=== PATIENT | female | born 2000 | race Caucasian/White ===

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

== ENCOUNTER 2021-02-09 19:50 | Emergency (ER) | payer MEDICAID, SELFPAY ==
[2021-02-09 19:51] VITALS: BP 146/82; PULSE 106; RESP 18; TEMP 37.1; O2SAT 98; BMI 42.5
== END 2021-02-09 20:00 | disposition left against medical advice (07) ==
LOC: ED 20:33
DX: Z53.21 Procedure and treatment not carried out due to patient leaving prior to being seen by health care provider (principal)

== ENCOUNTER 2021-08-21 12:12 | Outpatient (CLI) | payer MEDICAID, SELFPAY ==
[2021-08-21 14:55] LABS: Thyroid Stim Hormone (TSH) 2.38 uIU/mL (0.358-3.74)
[2021-08-23 06:08] LABS: Chlamydia By Nucleic Acid AMP Negative (Negative)
[2021-08-23 16:14] LABS: Gonococcus By Nucleic Acid AMP Negative (Negative)
== END 2021-08-21 23:59 | disposition home or self-care (01) ==
LOC: WOBLAB 12:14
PROVIDERS: Visit Provider Obstetrics & Gynecology
DX: Z11.3 Encounter for screening for infections with a predominantly sexual mode of transmission (principal); Z13.29 Encounter for screening for other suspected endocrine disorder
CPT/HCPCS: 36415; 84443; 87491; 87591

== ENCOUNTER 2021-11-14 14:06 | Emergency (ER) | payer MEDICAID, SELFPAY ==
[2021-11-14 14:07] VITALS: BP 115/72; PULSE 110; RESP 18; TEMP 37.4; O2SAT 95; BMI 40.7
[2021-11-14 14:08] VITALS: BP 119/63; PULSE 76; RESP 18; TEMP 37.2
[2021-11-14] MEDS: oxyCODONE 5 MG Tablet PO (15:00)
[2021-11-14 15:08] VITALS: BP 114/64; PULSE 74; RESP 18; TEMP 37.4; O2SAT 99
--- NOTE | 2021-11-14 16:03 | EDS_ITS ---
HPI History of Present Illness Chief Complaint: Abscess Narrative Narrative: 21-year-old female presenting with an abscess in the gluteal region. She states is between her upper and lower gluteal region. Its been there for about a week. She states she was seen at another facility and they told her it was just deep bruising. She is not had systemic signs or symptoms. Patient denies any fever or chills. She denies any trauma to the area. No history of MRSA or abscess. PFSH PFSH Medical History no medical history Home Medications naproxen 500 mg PO BID 11/14/21 [History Last Taken Unknown] oxycodone-acetaminophen [Percocet] 1 tab PO Q6H PRN 3 Days #12 tab 11/14/21 [Rx Last Taken Unknown] prazosin 1 mg PO DAILY 11/14/21 [History Last Taken Unknown] sulfamethoxazole-trimethoprim [Bactrim DS] 1 tab PO BID #20 tab 11/14/21 [Rx Last Taken Unknown] vortioxetine [Trintellix] 10 mg PO QHS 11/14/21 [History Last Taken Unknown] Allergy/AdvReac Type Severity Reaction Status Date / Time No Known Allergies Allergy Verified 11/14/21 14:08 Surgical History no surgical history Social History Smoking Status: Current every day smoker tobacco type: cigarettes substance use type: does not use ROS ROS ED Constitutional Constitutional ED: Denies chills or fever(s) Eyes Eyes: Denies blurry vision or diplopia ENT ENT ED: Denies rhinorrhea or sore throat Cardiovascular Cardiovascular: Denies chest pain or palpitations Respiratory/Chest Respiratory/Chest: Denies cough or dyspnea Gastrointestinal Gastrointestinal: Denies abdominal pain, nausea or vomiting Genitourinary Genitourinary ED: Denies dysuria or hematuria Musculoskeletal Musculoskeletal: Denies arthralgias or myalgias Integumentary Reports abscess Neurologic Neurologic: Denies headache(s) or weakness EXAM Physical Exam Const Vital Signs: 11/14/21 14:07 Temperature 99.3 F H Temperature Source Temporal Pulse Rate 110 H Respiratory Rate 18 Blood Pressure 115/72 Blood Pressure Mean 86 Pulse Ox 95 Oxygen Delivery Method Room Air Positive well nourished General Appearance ED: NAD HEENT Reports moist mucous membranes Negative for trauma Eyes PERRL and EOMs intact bilaterally Resp normal respiratory effort Cardio regular rate and regular rhythm GI GI Narrative: There is a 3 cm circular fluctuant mass in the upper left gluteal region without surrounding erythema or induration with partial extension into the midline. This is tender to palpation. Neuro oriented x3 and CN's II-XII intact bilaterally Sensorium / Orientation: alert Psych mental status grossly normal Skin Skin Narrative: As noted above MDM MDM MDM Narrative Medical decision making narrative: Patient presenting with left gluteal abscess. This is approximately 3 cm. Patient was consented for incision and drainage. The local area around the abscess was patient's abscess was cleaned with Shur- Clens. Area was prepped and draped in a sterile fashion. Anesthetized with 12 cc lidocaine with epinephrine. Good anesthesia was achieved. I attempted to make a cruciate incision into the central fluctuant area although due to the location I did modify this into a Y-shaped pattern so I did not cross the midline over her sacrum. Purulent drainage was expressed from the wound. The abscess was deloculated and more purulent fluid was drained. The abscess was irrigated with 1 L of sterile saline until there was no further purulent drainage. Patient tolerated procedure well. She was given oxycodone for pain. She was started on Bactrim outpatient and the first dose was given in the emergency room. She was given follow-up with general surgery because she does not have a primary care provider. She is given instructions on wound care and return precautions. Impression: 1. Left gluteal abscess 2. Incision and drainage Discharge Plan Triage Chief Complaint: Abscess ED Provider: Oral Sarabia Dx/Rx/DC Orders Instructions: ED Abscess Incision And Drainage Prescriptions: New oxycodone-acetaminophen [Percocet] 5-325 mg tablet 1 tab PO Q6H PRN (Reason: pain) 3 Days Qty: 12 RF: 0 sulfamethoxazole-trimethoprim [Bactrim DS] 800-160 mg tablet 1 tab PO BID Qty: 20 RF: 0 No Action prazosin 1 mg capsule 1 mg PO DAILY RF: 0 naproxen 500 mg tablet 500 mg PO BID RF: 0 Trintellix 10 mg tablet 10 mg PO QHS RF: 0 Primary Care Provider: Care Physician,No Primary Referrals: Shahram Walker MD [STAFF PHYSICIAN] - As soon as possible Care Physician,No Primary [Primary Care Provider] - Disposition Disposition: Home, Self Care
[2021-11-14 16:08] VITALS: BP 85/69; PULSE 70; RESP 16; TEMP 37.2; O2SAT 100
[2021-11-14] MEDS: Smz/Tmp Ds Tablet 1 TABLET PO (16:47)
[2021-11-14] MEDS: Lidocaine 1% /Epi 1:100 (20ml) 20 ML Vial INFILT (16:47)
== END 2021-11-14 16:55 | disposition home or self-care (01) ==
PROVIDERS: Emergency Provider Student in an Organized Health Care Education/Training Program; Visit Provider Student in an Organized Health Care Education/Training Program
DX: L02.31 Cutaneous abscess of buttock (principal); F17.210 Nicotine dependence, cigarettes, uncomplicated
CPT/HCPCS: 10060; 99284